=== PATIENT | female | born 1975 | race Caucasian/White ===

== ENCOUNTER 2021-12-08 09:25 | Outpatient (CLI) | payer OTHER ==
[~2021-12-08] VITALS: Ht 167.6 cm; Wt 74.8 kg
[2021-12-08] MEDS ORDERED: COSENTYX (150 MG/1 M SQ (10:38)
[2021-12-08] MEDS ORDERED: SAVELLA100 MG PO (10:38)
[2021-12-08] MEDS ORDERED: HALDOL 5MG T5 MG/TAB PO (10:39)
[2021-12-08] MEDS ORDERED: LAMICTAL 100MG100 MG PO (10:39)
[2021-12-08 10:40] VITALS: BP 110/66; PULSE 92; TEMP 98.1
[2021-12-08 11:25] VITALS: BP 108/66; PULSE 88; TEMP 98.7
== END 2021-12-08 12:35 ==
LOC: EUO 09:25
DX: U07.1 COVID-19 (principal)
CPT/HCPCS: M0220; Q0220

== ENCOUNTER → 2022-04-14 | Outpatient (CLI) | payer OTHER ==
[~2022-04-14] MED LIST: COSENTYX (150 MG/1 M SQ; HALDOL 5MG T5 MG/TAB PO; LAMICTAL 100MG100 MG PO; SAVELLA100 MG PO
== END ==
LOC: MC.RAD 15:24
DX: Z12.31 Encounter for screening mammogram for malignant neoplasm of breast (principal)

== ENCOUNTER 2022-06-02 08:05 | Outpatient (RCR) | payer OTHER ==
[~2022-06-02] VITALS: Ht 167.6 cm; Wt 74.2 kg
[2022-06-02 08:56] VITALS: BP 103/62; PULSE 92; TEMP 98.4
[2022-06-02 10:00] VITALS: BP 117/78; PULSE 52
--- NOTE | 2022-06-02 10:04 | NUR ---
Pt ambulates from dept with steady gait, no complaints, following 1 hr observation after evusheld injections.
[2022-06-02] MEDS ORDERED: RISPERDAL 1M1 MG/TAB PO (10:44)
== END 2022-06-02 10:44 ==
LOC: EUO 08:05
DX: Z23 Encounter for immunization (principal)
CPT/HCPCS: M0220

== ENCOUNTER → 2024-06-07 | Outpatient (CLI) | payer OTHER ==
[~2024-06-07] MED LIST changes: +RISPERDAL 1M1 MG/TAB PO
== END ==
LOC: MC.RAD 07:15
DX: Z12.31 Encounter for screening mammogram for malignant neoplasm of breast (principal)